=== PATIENT | female | born 1975 | race African-American/Black ===

== ENCOUNTER 2016-10-15 08:59 | Emergency (ER) | payer SELFPAY ==
[~2016-10-15] VITALS: Ht 160 cm; Wt 86.0 kg
[~2016-10-15 08:59] MED LIST: AMLO-512 PO; CHL25 PO; CLON.1 PO; DEPOP150I IM; HYDR25TA PO; INDO25 PO; LISI40TA4 PO; NAPR-58 PO; SPIR25 PO
[2016-10-15] MEDS ORDERED: CALC-1174 PO (09:09)
[2016-10-15] MEDS ORDERED: METO50 PO (09:09)
[2016-10-15] MEDS ORDERED: HYDR-2924 PO (09:09)
[2016-10-15] MEDS ORDERED: KETOROLAC TROMETHAMINE 30 MG/ML VIAL IVP ONE (09:45)
[2016-10-15] MEDS ORDERED: DEXAMETHASONE SOD PHOS 4 MG/ML 5 ML VIAL IM ONE (09:45)
[2016-10-15] MEDS ORDERED: ONDANSETRON HCL 4 MG/2 ML VIAL IVP ONE (09:45)
[2016-10-15] MEDS ORDERED: HYDROmorphone 2 MG/ML SYRINGE IVP ONE (09:45)
[2016-10-15 14:00] VITALS: BP 176/112
== END 2016-10-15 14:34 | disposition home or self-care (01) ==
LOC: EMS 09:00
DX: M54.42 Lumbago with sciatica, left side (principal); M54.16 Radiculopathy, lumbar region; I10 Essential (primary) hypertension; G43.909 Migraine, unspecified, not intractable, without status migrainosus; Z88.8 Allergy status to other drugs, medicaments and biological substances
CPT/HCPCS: 72100; 81025; 96372; 96374; 96375; 99284; J1100; J1170; J1885; J2405

== ENCOUNTER 2018-04-05 00:42 | Emergency (ER) | payer OTHER ==
[~2018-04-05] VITALS: Ht 157.5 cm; Wt 94.5 kg
[~2018-04-05 00:42] MED LIST changes: +CALC-1174 PO; -CHL25 PO; +CIPR-278 PO; -CLON.1 PO; +HYDR-2924 PO; -HYDR25TA PO; -INDO25 PO; +METO50 PO; -NAPR-58 PO
[2018-04-05] MEDS ORDERED: KETOROLAC TROMETHAMINE 60 MG/2 ML VIAL IM ONE (02:15)
[2018-04-05 03:00] VITALS: BP 167/101
== END 2018-04-05 03:04 | disposition home or self-care (01) ==
LOC: EMS 00:42
DX: S86.911A Strain of unspecified muscle(s) and tendon(s) at lower leg level, right leg, initial encounter (principal); Z79.899 Other long term (current) drug therapy; Z88.8 Allergy status to other drugs, medicaments and biological substances; X58.XXXA Exposure to other specified factors, initial encounter; Y93.89 Activity, other specified; Y92.89 Other specified places as the place of occurrence of the external cause; Y99.8 Other external cause status
CPT/HCPCS: 29505; 73562; 96372; 99283; J1885

== ENCOUNTER 2018-12-13 15:41 | Emergency (ER) | payer OTHER ==
[~2018-12-13] VITALS: Ht 165.1 cm; Wt 100.0 kg
[~2018-12-13 15:41] MED LIST changes: -AMLO-512 PO; +AMLO10TA7 PO
[2018-12-13] MEDS ORDERED: CARV3 PO (15:53)
[2018-12-13] MEDS ORDERED: CLON-570 PO (15:54)
[2018-12-13 16:30] VITALS: BP 189/127
[2018-12-13] MEDS ORDERED: KETOROLAC TROMETHAMINE 30 MG/ML VIAL IM ONE (16:45)
[2018-12-13] MEDS ORDERED: CYCLOBENZAPRINE HCL 10 MG TABLET PO ONE (16:45)
[2018-12-13] MEDS ORDERED: CloNIDine HCL 0.1 MG TABLET PO ONE (17:00)
== END 2018-12-13 17:38 | disposition home or self-care (01) ==
LOC: EMS 15:41
DX: S46.811A Strain of other muscles, fascia and tendons at shoulder and upper arm level, right arm, initial encounter (principal); I10 Essential (primary) hypertension; G43.909 Migraine, unspecified, not intractable, without status migrainosus; Z79.899 Other long term (current) drug therapy; Z88.8 Allergy status to other drugs, medicaments and biological substances; X58.XXXA Exposure to other specified factors, initial encounter; Y93.89 Activity, other specified; Y92.89 Other specified places as the place of occurrence of the external cause; Y99.8 Other external cause status
CPT/HCPCS: 96372; 99283; J1885

== ENCOUNTER 2020-02-05 17:03 | Emergency (ER) | payer OTHER ==
[~2020-02-05] VITALS: Ht 160 cm; Wt 97.7 kg
[~2020-02-05 17:03] MED LIST changes: +AMLO-258 PO; -AMLO10TA7 PO; +CARV3 PO; -CIPR-278 PO; +CLON0.1T83 PO
[2020-02-05] MEDS ORDERED: AMPICILLIN SODIUM/SULBACTAM NA 1.5 GM in SODIUM CHLORIDE 0.9% 50 ML IV ONE (18:00)
[2020-02-05] MEDS ORDERED: POVIDONE-IODINE 10% 15 ML SOLUTION UD TP ONE (18:00)
[2020-02-05] MEDS ORDERED: IBUPROFEN 800 MG TABLET PO ONE (18:00)
[2020-02-05 18:28] LABS: BASOPHILS % (AUTO) 0.8 % (0.0-2.0); EOSINOPHILS % (AUTO) 2.3 % (1.0-6.0); HEMATOCRIT 39.9 % (36-46); HEMOGLOBIN 13.4 g/dL (12.0-16.0); LYMPHOCYTES % (AUTO) 32.1 % (22.0-44.0); MEAN CORPUSCULAR HEMOGLOBIN 31.8 pg (26.0-34.0); MEAN CORPUSCULAR HGB CONC 33.5 G/dL (31.0-37.0); MEAN CORPUSCULAR VOLUME 95 fL (80-100); MONOCYTES # (AUTO) 0.3 K/uL (0.1-1.0); MONOCYTES % (AUTO) 5.5 % (2.0-9.0); NEUTROPHILS # (AUTO) 3.7 K/uL (1.8-7.7); NEUTROPHILS % (AUTO) 59.3 % (40.0-70.0); PLATELET COUNT (AUTO) 205 K/uL (150-450); RED BLOOD CELL COUNT(AUTO) 4.21 MIL/uL (4.00-5.20); RED CELL DISTRIBUTION WIDTH 13.8 % (11.5-14.5)
[2020-02-05 18:44] LABS: ANION GAP 8 mmol/L (8-16); CALCIUM, TOTAL 8.6 mg/dL (8.8-10.5); CARBON DIOXIDE 28 mmol/L (22-29); CHLORIDE 107 mmol/L (98-107); GLOMERULAR FILTR. RATE CALC > 60 mL/min (>60); GLUCOSE,RANDOM 85 mg/dL (70-110); POTASSIUM 3.2 mmol/L (3.5-5.1); SODIUM SERUM 143 mmol/L (136-145); UREA NITROGEN, BLOOD 9 mg/dL (7-18)
[2020-02-05 18:49] LABS: ALANINE AMINOTRANSFERASE 21 U/L (12-78); ALBUMIN 3.7 g/dL (3.4-5.0); ALKALINE PHOSPHATASE 101 U/L (46-116); ASPARTATE AMINOTRANSFERASE 14 U/L (15-37); BILIRUBIN,TOTAL 0.7 mg/dL (0.1-1.0); TOTAL PROTEIN, SERUM 7.4 g/dL (6.4-8.2)
[2020-02-05 19:22] VITALS: BP 154/99
== END 2020-02-05 19:34 | disposition home or self-care (01) ==
LOC: EMS 17:03
DX: S91.311A Laceration without foreign body, right foot, initial encounter (principal); G43.909 Migraine, unspecified, not intractable, without status migrainosus; I10 Essential (primary) hypertension; Z88.8 Allergy status to other drugs, medicaments and biological substances; Z79.899 Other long term (current) drug therapy; W54.0XXA Bitten by dog, initial encounter; Y93.89 Activity, other specified; Y92.89 Other specified places as the place of occurrence of the external cause; Y99.8 Other external cause status
CPT/HCPCS: 36415; 73630; 80053; 85025; 96365; 99284; J0295; J7050

== ENCOUNTER 2020-10-21 23:59 | Emergency (ER) | payer OTHER ==
[~2020-10-21] VITALS: Ht 160 cm; Wt 109.1 kg
[~2020-10-21 23:59] MED LIST changes: -CALC-1174 PO; -CLON0.1T83 PO; -DEPOP150I IM; -HYDR-2924 PO; +HYDR50TA36 PO; -LISI40TA4 PO; +LISI40TA9 PO; -METO50 PO; -SPIR25 PO
[2020-10-22 00:59] LABS: BASOPHILS % (AUTO) 1.3 % (0.0-2.0); EOSINOPHILS % (AUTO) 2.2 % (1.0-6.0); HEMATOCRIT 41.9 % (36-46); HEMOGLOBIN 14.1 g/dL (12.0-16.0); LYMPHOCYTES % (AUTO) 28.6 % (22.0-44.0); MEAN CORPUSCULAR HEMOGLOBIN 32.1 pg (26.0-34.0); MEAN CORPUSCULAR HGB CONC 33.6 G/dL (31.0-37.0); MEAN CORPUSCULAR VOLUME 96 fL (80-100); MONOCYTES # (AUTO) 0.4 K/uL (0.1-1.0); MONOCYTES % (AUTO) 6.2 % (2.0-9.0); NEUTROPHILS # (AUTO) 4.3 K/uL (1.8-7.7); NEUTROPHILS % (AUTO) 61.7 % (40.0-70.0); PLATELET COUNT (AUTO) 224 K/uL (150-450); RED BLOOD CELL COUNT(AUTO) 4.38 MIL/uL (4.00-5.20); RED CELL DISTRIBUTION WIDTH 14.2 % (11.5-14.5)
[2020-10-22 01:09] LABS: ANION GAP 10 mmol/L (8-16); CALCIUM, TOTAL 8.8 mg/dL (8.8-10.5); CARBON DIOXIDE 27 mmol/L (22-29); CHLORIDE 107 mmol/L (98-107); CREATININE 0.75 mg/dL (0.60-1.30); GLOMERULAR FILTR. RATE CALC > 60 mL/min (>60); GLUCOSE,RANDOM 89 mg/dL (70-110); POTASSIUM 3.1 mmol/L (3.5-5.1); SODIUM SERUM 144 mmol/L (136-145); UREA NITROGEN, BLOOD 10 mg/dL (7-18)
[2020-10-22 01:14] LABS: INR 0.9 (0.9-1.1); PROTHROMBIN TIME 10.1 SEC (9.4-11.6)
[2020-10-22 01:20] LABS: B-TYPE NATRIURETIC PEPTIDE 25 pg/mL (0-100)
[2020-10-22] MEDS ORDERED: SODIUM CHLORIDE 0.9% 2,000 ML IV ONE (01:30)
[2020-10-22 01:34] LABS: ALANINE AMINOTRANSFERASE 31 U/L (12-78); ALBUMIN 3.8 g/dL (3.4-5.0); ALKALINE PHOSPHATASE 113 U/L (46-116); ASPARTATE AMINOTRANSFERASE 17 U/L (15-37); BILIRUBIN,TOTAL 0.7 mg/dL (0.1-1.0); CREATINE KINASE, TOTAL ONLY 212 U/L (26-192); TOTAL PROTEIN, SERUM 7.9 g/dL (6.4-8.2)
[2020-10-22] MEDS ORDERED: HydrALAZINE HCL 20 MG/ML VIAL IVP ONE (01:45)
[2020-10-22] MEDS ORDERED: METHOCARBAMOL 500 MG TABLET PO ONE (01:45)
[2020-10-22] MEDS ORDERED: POTASSIUM CHLORIDE 20 MEQ ER TABLET PO ONE (01:45)
[2020-10-22] MEDS ORDERED: KETOROLAC TROMETHAMINE 30 MG/ML VIAL IVP ONE (01:45)
[2020-10-22] MEDS ORDERED: METOPROLOL TARTRATE 5 MG/5 ML VIAL IVP ONE (03:15)
[2020-10-22 04:45] VITALS: BP 165/97
== END 2020-10-22 05:38 | disposition home or self-care (01) ==
LOC: EMS 10-22 00:02
DX: I10 Essential (primary) hypertension (principal); E87.6 Hypokalemia; M54.5 Low back pain; G43.909 Migraine, unspecified, not intractable, without status migrainosus; Z88.0 Allergy status to penicillin; Z79.899 Other long term (current) drug therapy
CPT/HCPCS: 71045; 72110; 80053; 82550; 83880; 84484; 85025; 85610; 85730; 93005; 96361; 96374; 96375; 99285; J0360; J1885; J3490; J7030

== ENCOUNTER 2022-06-25 00:46 | Emergency (ER) | payer OTHER ==
[~2022-06-25] VITALS: Ht 162.6 cm; Wt 82.0 kg
[2022-06-25 01:21] VITALS: BP 189/90
== END 2022-06-25 02:36 | disposition home or self-care (01) ==
LOC: EMS 00:47
DX: R11.0 Nausea (principal); I10 Essential (primary) hypertension; G43.909 Migraine, unspecified, not intractable, without status migrainosus; Z77.120 Contact with and (suspected) exposure to mold (toxic); Z98.890 Other specified postprocedural states; Z88.8 Allergy status to other drugs, medicaments and biological substances
CPT/HCPCS: 99282; Z7502

== ENCOUNTER 2023-05-18 18:19 | Inpatient (IN) | payer OTHER ==
[~2023-05-18] VITALS: Ht 157.5 cm; Wt 95.2 kg
[2023-05-18] MEDS ORDERED: LOSA100T59 PO (18:27)
[2023-05-18] MEDS ORDERED: CHLO25TA3 PO (18:27)
[2023-05-18] MEDS ORDERED: SODIUM CHLORIDE 0.9% 1,000 ML IV ONE (19:45)
[2023-05-18 20:00] LABS: BASOPHILS % (AUTO) 1.1 % (0.0-2.0); EOSINOPHILS % (AUTO) 2.1 % (1.0-6.0); HEMATOCRIT 42.7 % (36-46); LYMPHOCYTES # (AUTO) 1.8 K/uL (1.0-4.8); LYMPHOCYTES % (AUTO) 34.5 % (22.0-44.0); MEAN CORPUSCULAR HEMOGLOBIN 31.3 pg (26.0-34.0); MEAN CORPUSCULAR HGB CONC 32.8 G/dL (31.0-37.0); MEAN CORPUSCULAR VOLUME 95 fL (80-100); MONOCYTES # (AUTO) 0.3 K/uL (0.1-1.0); MONOCYTES % (AUTO) 5.3 % (2.0-9.0); NEUTROPHILS # (AUTO) 2.9 K/uL (1.8-7.7); PLATELET COUNT (AUTO) 217 K/uL (150-450); RED BLOOD CELL COUNT(AUTO) 4.48 MIL/uL (4.00-5.20); RED CELL DISTRIBUTION WIDTH 14.3 % (11.5-14.5); WHITE BLOOD COUNT (AUTO) 5.1 K/uL (4.5-11.0)
[2023-05-18 20:07] LABS: ANION GAP 11 mmol/L (8-16); CALCIUM, TOTAL 8.6 mg/dL (8.8-10.5); CARBON DIOXIDE 24 mmol/L (22-29); CHLORIDE 106 mmol/L (98-107); CREATININE 0.71 mg/dL (0.60-1.30); GLOMERULAR FILTR. RATE CALC > 60 mL/min (>60); GLUCOSE,RANDOM 87 mg/dL (70-110); POTASSIUM 3.4 mmol/L (3.5-5.1); SODIUM SERUM 141 mmol/L (136-145); UREA NITROGEN, BLOOD 13 mg/dL (7-18)
[2023-05-18 20:12] LABS: ALANINE AMINOTRANSFERASE 18 U/L (12-78); ALBUMIN 3.5 g/dL (3.4-5.0); ALKALINE PHOSPHATASE 97 U/L (46-116); ASPARTATE AMINOTRANSFERASE 14 U/L (15-37); BILIRUBIN,TOTAL 0.9 mg/dL (0.1-1.0); LIPASE 45 U/L (16-77); TOTAL PROTEIN, SERUM 6.9 g/dL (6.4-8.2)
[2023-05-18 20:14] LABS: TROPONIN I-HIGH SENSITIVITY 7 ng/L (<51)
[2023-05-18] MEDS ORDERED: HydrALAZINE HCL 20 MG/ML VIAL IVP ONE (21:00)
[2023-05-18] MEDS ORDERED: KETOROLAC TROMETHAMINE 30 MG/ML VIAL IVP ONE (21:15)
[2023-05-18] MEDS ORDERED: DiphenhydrAMINE HCL 50 MG/ML VIAL IVP ONE (21:15)
[2023-05-18] MEDS ORDERED: METOCLOPRAMIDE HCL 5 MG/ML 2 ML VIAL IVP ONE (21:15)
[2023-05-18 21:37] LABS: APPEARANCE,URINE CLEAR (CLEAR); BILIRUBIN,URINE NEGATIVE (NEGATIVE); COLOR,URINE LIGHT YELLOW (YELLOW); GLUCOSE, URINE (UA) NEGATIVE (NEGATIVE); KETONES,URINE TRACE mg/dL (NEGATIVE); LEUKOCYTE ESTERASE ,URINE NEGATIVE (NEGATIVE); NITRATE,URINE NEGATIVE (NEGATIVE); OCCULT BLOOD,URINE TRACE (NEGATIVE); PH,URINE 6.5 (5.0-8.0); PROTEIN,URINE NEGATIVE (NEGATIVE); SPECIFIC GRAVITIY, URINE 1.015 (1.003-1.030); UROBILINOGEN,URINE <=1.0 mg/dL (<=1.0)
[2023-05-18 21:43] LABS: BACTERIA,URINE Rare /HPF (None Seen); SQUAMOUS EPITHELIAL CELL,UR Moderate /LPF (None Seen)
[2023-05-18] MEDS ORDERED: AmLODIPine BESYLATE 5 MG TABLET PO ONE (21:45)
[2023-05-18] MEDS ORDERED: LABETALOL HCL 5 MG/ML 20 ML VIAL IVP ONE (21:45)
[2023-05-18 22:23] LABS: COVID AG,FIA SOURCE NASAL SWAB
[2023-05-18 22:42] LABS: SARS-COV2 (COVID) ANTIGEN,FIA Negative (Negative)
[2023-05-18] MEDS ORDERED: ACETAMINOPHEN 325 MG TABLET PO PRN (22:45)
[2023-05-18] MEDS ORDERED: ONDANSETRON HCL 4 MG/2 ML VIAL IVP PRN (22:45)
[2023-05-18] MEDS: CefTRIAXone 1 GM/DEXTROSE 50 ML IV SCH (22:46)
[2023-05-18] MEDS: LABETALOL HCL 100 MG TABLET PO SCH (23:08)
[2023-05-18] MEDS: SPIRONOLACTONE 25 MG TABLET PO SCH (23:08)
[2023-05-18] MEDS: HydrALAZINE HCL 20 MG/ML VIAL IVP PRN (23:09)
[2023-05-19 00:49] LABS: TROPONIN I-HIGH SENSITIVITY 7 ng/L (<51)
[2023-05-19 08:13] LABS: BASOPHILS % (AUTO) 0.8 % (0.0-2.0); EOSINOPHILS % (AUTO) 0.7 % (1.0-6.0); HEMATOCRIT 43.8 % (36-46); HEMOGLOBIN 14.3 g/dL (12.0-16.0); LYMPHOCYTES # (AUTO) 1.7 K/uL (1.0-4.8); LYMPHOCYTES % (AUTO) 29.3 % (22.0-44.0); MEAN CORPUSCULAR HEMOGLOBIN 31.3 pg (26.0-34.0); MEAN CORPUSCULAR HGB CONC 32.6 G/dL (31.0-37.0); MEAN CORPUSCULAR VOLUME 96 fL (80-100); MONOCYTES # (AUTO) 0.3 K/uL (0.1-1.0); NEUTROPHILS # (AUTO) 3.7 K/uL (1.8-7.7); NEUTROPHILS % (AUTO) 64.2 % (40.0-70.0); PLATELET COUNT (AUTO) 228 K/uL (150-450); RED BLOOD CELL COUNT(AUTO) 4.57 MIL/uL (4.00-5.20); RED CELL DISTRIBUTION WIDTH 14.4 % (11.5-14.5); WHITE BLOOD COUNT (AUTO) 5.8 K/uL (4.5-11.0)
[2023-05-19] MEDS: DOCUSATE SODIUM 100 MG CAPSULE PO SCH ×2 (08:15→21:00)
[2023-05-19] MEDS: SPIRONOLACTONE 25 MG TABLET PO SCH ×2 (08:17→21:23)
[2023-05-19 08:40] LABS: ANION GAP 12 mmol/L (8-16); CALCIUM, TOTAL 8.5 mg/dL (8.8-10.5); CARBON DIOXIDE 24 mmol/L (22-29); CHLORIDE 106 mmol/L (98-107); CREATININE 0.75 mg/dL (0.60-1.30); GLOMERULAR FILTR. RATE CALC > 60 mL/min (>60); GLUCOSE,RANDOM 99 mg/dL (70-110); POTASSIUM 3.6 mmol/L (3.5-5.1); SODIUM SERUM 142 mmol/L (136-145); UREA NITROGEN, BLOOD 12 mg/dL (7-18)
[2023-05-19] MEDS: HydrALAZINE HCL 20 MG/ML VIAL IVP PRN (08:50)
[2023-05-19] MEDS: LABETALOL HCL 100 MG TABLET PO SCH (09:27)
[2023-05-19] MEDS: LOSARTAN POTASSIUM 25 MG TABLET PO SCH ×2 (09:27→21:23)
[2023-05-19] MEDS: LABETALOL HCL 200 MG TABLET PO SCH (21:24)
[2023-05-19 21:38] VITALS: BP 150/97; PULSE 100; RESP 18; TEMP 98.3
[2023-05-19] MEDS ORDERED: SODIUM CHLORIDE 0.9% 250 ML IV ONE (23:15)
[2023-05-19] MEDS: CefTRIAXone 1 GM/DEXTROSE 50 ML IV SCH (23:24)
[2023-05-19] MEDS: HEPARIN SODIUM,PORCINE 5,000 UNITS/ML VIAL SQ SCH (23:25)
[2023-05-20 00:15] VITALS: BP 132/81; PULSE 90; RESP 18; TEMP 98.1
[2023-05-20 04:00] VITALS: BP 142/96; PULSE 88; RESP 18; TEMP 98.6
[2023-05-20 08:00] VITALS: BP 155/107; PULSE 89; RESP 18; TEMP 98.5
[2023-05-20] MEDS: SPIRONOLACTONE 25 MG TABLET PO SCH (08:09)
[2023-05-20] MEDS: HEPARIN SODIUM,PORCINE 5,000 UNITS/ML VIAL SQ SCH ×2 (08:09→16:31)
[2023-05-20] MEDS: DOCUSATE SODIUM 100 MG CAPSULE PO SCH (08:10)
[2023-05-20] MEDS: LOSARTAN POTASSIUM 25 MG TABLET PO SCH (08:10)
[2023-05-20] MEDS: LABETALOL HCL 200 MG TABLET PO SCH (09:35)
[2023-05-20] MEDS ORDERED: LOSA-417 PO (11:06)
[2023-05-20] MEDS ORDERED: SPIR-37 PO (11:06)
[2023-05-20] MEDS ORDERED: LABE200T56 PO (11:06)
[2023-05-20] MEDS ORDERED: LEVO-72 PO (11:06)
[2023-05-20 11:14] VITALS: BP 154/115; PULSE 83; RESP 20; TEMP 98.3
[2023-05-20 13:11] VITALS: BP 143/92
[2023-05-20 18:15] VITALS: BP 152/97; PULSE 85; RESP 18; TEMP 98.3
== END 2023-05-20 19:00 | disposition home or self-care (01) | DRG 199 ==
LOC: EMS 18:21 → AHU 23:17 → 5S 05-19 18:44
PROVIDERS: ADMIT Internal Medicine; ATTEND Internal Medicine
DX: I16.1 Hypertensive emergency (principal); E66.9 Obesity, unspecified; E87.6 Hypokalemia; N39.0 Urinary tract infection, site not specified; I10 Essential (primary) hypertension; M54.50 Low back pain, unspecified; Z20.822 Contact with and (suspected) exposure to COVID-19; G43.909 Migraine, unspecified, not intractable, without status migrainosus; Z88.0 Allergy status to penicillin; Z98.891 History of uterine scar from previous surgery; Z79.899 Other long term (current) drug therapy; Z68.38 Body mass index [BMI] 38.0-38.9, adult; Z82.49 Family history of ischemic heart disease and other diseases of the circulatory system
CPT/HCPCS: 70450; 74022; 80048; 80053; 81001; 83690; 83735; 83880; 84484; 85025; 93005; 93306; 99285; G0378; J0360; J0696; J1200; J1644; J1885; J2765; J3490; J7030; J7050